=== PATIENT | male | born 1990 | race Caucasian/White ===

== ENCOUNTER 2021-04-26 19:16 | Emergency (ER) | payer OTHER ==
[~2021-04-26] VITALS: Ht 182.9 cm; Wt 111.0 kg
[2021-04-26] MEDS ORDERED: AMOX1TAB61 PO (21:11)
--- NOTE | 2021-04-26 21:11 | PHYS DOC ---
Past Medical History Past Surgical History: Appendectomy General Adult EDM: Chief Complaint: ANIMAL BITE HPI: HPI: Patient is a 30 year old male who presents to the ED today with dog bites to the left upper extremity. 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 He got bit by a dog after dropping off a box. Unknown status of this dog's shots Review of Systems: Review of Systems: Constitutional: Denies fever or chills. [] Musculoskeletal: Denies back pain or joint pain. [] Integument: Reports dog bite to the left upper extremity Neurologic: Denies headache, focal weakness or sensory changes. [] Psychiatric: Denies depression or anxiety. [] Heart Score: C/O Chest Pain: N/A Risk Factors: Risk Factors: DM, Current or recent (<one month) smoker, HTN, HLP, family history of CAD, obesity. Risk Scores: Score 0 - 3: 2.5% MACE over next 6 weeks - Discharge Home Score 4 - 6: 20.3% MACE over next 6 weeks - Admit for Clinical Observation Score 7 - 10: 72.7% MACE over next 6 weeks - Early Invasive Strategies Allergies: Allergies: Allergies Coded Allergies Type Severity Reaction Last Updated Verified No Known Drug Allergies 04/26/21 No Physical Exam: PE: Constitutional: Well developed, well nourished, no acute distress, non-toxic appearance. [] Skin: Left biceps with multiple bruises consistent with dog bite. Left proximal forearm ventral aspect with a group of scratches as well as a 2 cm dog bite that does not need stitches. Neurovascular exam is intact to the left upper extremity. +2 left radial pulse. Range of motion is intact to the left upper extremity. Back: No tenderness, no CVA tenderness. [] Extremities: No tenderness, no cyanosis, no clubbing, ROM intact, no edema. [] Neurologic: Alert and oriented X 3, normal motor function, normal sensory function, no focal deficits noted. [] Psychologic: Affect normal, judgement normal, mood normal. [] Current Patient Data: Vital Signs: Vital Signs Date Time Temp Pulse Resp B/P (MAP) Pulse Ox O2 Delivery O2 Flow Rate FiO2 04/26/21 19:22 98.6 84 20 133/98 96 Room Air 98.6 EKG: EKG: [] Radiology/Procedures: Radiology/Procedures: [] Course & Med Decision Making: Course & Med Decision Making Pertinent Labs and Imaging studies reviewed. (See chart for details) This a 30-year-old male patient presenting to the ED today with dog bites to the left upper extremity. The bites were cleaned thoroughly by me. Started on Augmentin and tetanus updated. Wound care instructions and return precautions provided Rose Disclaimer: Dragbryson Disclaimer: This electronic medical record was generated, in whole or in part, using a voice recognition dictation system. Departure Departure Impression: Primary Impression: Open wound of left upper arm due to dog bite Disposition: HOME / SELF CARE / HOMELESS Condition: STABLE Referrals: NO PCP (PCP) Follow-up with your doctor in 1 to 2 weeks Patient Instructions: Animal Bite, [id number] Additional Instructions: You have dog bites to the left upper extremity. You can wash the areas with regular soap and water. Cover the areas if they are bleeding or draining. Leave them open to air if they are not bleeding or draining. Please take the prescribed antibiotics until completed. Apply [id number] Neosporin to the bite site twice a day for 10 days. Come back to the ED at any point wound condition worsens Scripts Amoxicillin/Potassium Clav (AUGMENTIN 875-125 TABLET) 1 Each Tablet 1 TAB PO BID for 10 Days, #20 TAB 0 Refills Prov: BRYSON ANGEL APRN 04/26/21 BRYSON ANGEL APRN Apr 26, 2021 21:11
[2021-04-26] MEDS ORDERED: DIPH,PERTUSS(ACELL),TET VAC/PF 0.5 ML SYRINGE. VAX IM ONE (21:15)
[2021-04-26] MEDS ORDERED: AMOXICILLIN/K CLAV 875/125MG TABLET. PO ONE (21:15)
[2021-04-26 21:34] VITALS: BP 121/70
== END 2021-04-26 21:30 | disposition home or self-care (01) ==
LOC: ER 19:16
DX: S41.152A Open bite of left upper arm, initial encounter (principal); W54.0XXA Bitten by dog, initial encounter; Y93.89 Activity, other specified; Y92.89 Other specified places as the place of occurrence of the external cause; Y99.8 Other external cause status
CPT/HCPCS: 90471; 90715; 99283-25